=== PATIENT | female | born 1955 | race Caucasian/White ===

== ENCOUNTER → 2018-01-20 08:08 | Outpatient (CLI) | payer BC, SELFPAY ==
--- NOTE | 2018-01-20 08:41 | RAD_ITS ---
STUDY: X-RAY - ESOPHAGUS (BARIUM SWALLOW) WITH FLUOROSCOPY REASON FOR EXAM: Female, 62 years old. Dysphasia. Coughing. Token sensation. TECHNIQUE: 11 view(s) of the esophagus were obtained following swallowing of barium. FLUOROSCOPY TIME (if supplied): (0:27) minutes/seconds COMPARISON: None. FINDINGS: There is no demonstrated esophageal foreign body. There is no demonstrated stricture or mucosal abnormality. Normal gastroesophageal junction, without a demonstrated hiatal hernia. The patient ingested a 12 mm tablet of barium without any difficulty. Normal visualized aortic arch and descending thoracic aorta. Normal visualized pulmonary parenchyma. Normal visualized osseous structures of the thorax. RAD/Esophagus Only IMPRESSION: Normal plain film x-ray examination (barium swallow) of the esophagus. Electronically Signed: Trey Latham MD at 9:41 EST Tel [phone], Service support ,
== END ==
PROVIDERS: Family Provider Family Medicine; PCP Family Medicine; Visit Provider Family Medicine
DX: R13.10 Dysphagia, unspecified (principal)
CPT/HCPCS: 74220

== ENCOUNTER → 2018-02-04 15:57 | Outpatient (CLI) | payer BC, SELFPAY ==
--- NOTE | 2018-02-04 09:33 | ESO_PTH ---
PATIENT: GALINDO SHRESTHA LOC: [facility] U#:[id number] AGE/SX: 70/F ROOM: RE02/04/[address]: Dr. Valdemar Cunningham MD : 1955 BED: DIS: SPEC #: [id number] RECD: 02/04/18 16:26 STATUS: HEATHER SINGHCristobal #: [id number] BALDO: 02/04/18 09:[address]: Valdemar Cunningham DEPT: SURGICAL PATHOLOGY RECD BY: Roberto Bowden ENTERED: 02/07/18 13:02 SP TYPE: FUENTES FRY DR: Dr. Bhavesh Ventura MD [facility] Tissues: Esophagus, NOS Procedures: Surgery Specimen Level IV HEADER OPERATION: EGD with biopsies PRE-OP DIAGNOSIS: Dysphagia TISSUE SUBMITTED: Esophageal biopsies, rule out EE MICROSCOPIC DIAGNOSIS Esophagus, biopsy: Fragments of benign superficial squamous epithelium. No evidence of eosinophilic esophagitis. AM:johnathon 02/08/18 MICROSCOPIC DESCRIPTION Slides are reviewed. GROSS DESCRIPTION Received in fixative is one container labeled with the patient's name and designated esophageal biopsy. The specimen consists of multiple irregular fragments of light melo soft tissue that in aggregate measure 1 x 0.8 x 0.1 cm. The specimen is totally submitted in one cassette. / SJ:johnathon 02/07/18 TC:5 CPT: 32227
== END ==
PROVIDERS: Family Provider Family Medicine; PCP Family Medicine; Visit Provider Internal Medicine Gastroenterology
DX: R13.10 Dysphagia, unspecified (principal)
CPT/HCPCS: 88305